=== PATIENT | female | born 2005 | race Hispanic/Latino ===

== ENCOUNTER 2025-06-19 15:25 | Emergency (ER) | payer BC ==
[~2025-06-19] VITALS: Ht 167.6 cm; Wt 72.6 kg
--- NOTE | 2025-06-19 15:32 | ERN ---
ED Note History of Present Illness Stated Complaint: VAGINAL BLEEDING AFTER PLAN B Chief Complaint: Vaginal Problems/Bleeding Time Seen by MD: 15:28 Dictation: PATIENT IS A 20-YEAR-OLD FEMALE COMING IN TODAY WITH COMPLAINTS OF VAGINAL BLEEDING FOR THREE DAYS ONSET AFTER SHE HAD UNPROTECTED SEX AND THEN TOOK A PLAN B PILL. SHE SAID SHE PASSED A BIG CLOT AND THINKS I MIGHT HAVE HAD A MISCARRIAGE. 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 NO PAIN AT THIS TIME Allergies: Coded Allergies: amoxicillin (Unverified Allergy, Unknown, 06/19/25) clavulanic acid (Unverified Allergy, Unknown, 06/19/25) Past Medical History RN Note Reviewed/Agreed w/PFSH: Yes Review of System Dictation CONSTITUTIONAL: NEGATIVE EXCEPT FOR HPI HEAD/FACE: NEGATIVE EXCEPT FOR HPI EENT: NEGATIVE EXCEPT FOR HPI RESPIRATORY: NEGATIVE EXCEPT FOR HPI GASTROINTESTINAL/ABDOMINAL: NEGATIVE EXCEPT FOR HPI GENITOURINARY: NEGATIVE EXCEPT FOR HPI VAGINAL BLEEDING MUSCULOSKELETAL: NEGATIVE EXCEPT FOR HPI INTEGUMENTARY: NEGATIVE EXCEPT FOR HPI NEUROLOGICAL/PSYCH: NEGATIVE EXCEPT FOR HPI HEMATOLOGIC/LYMPHATIC: NEGATIVE EXCEPT FOR HPI ALL SYSTEMS NEGATIVE, EXCEPT NOTED ABOVE. 13 POINT REVIEW OF SYSTEMS ASSESSED AND ALL NEGATIVE EXCEPT FOR ABOVE. Initial Vital Sign VS Vital Signs Date Time Temp Pulse Resp B/P (MAP) Pulse Ox O2 Delivery O2 Flow Rate FiO2 06/19/25 15:28 98.8 97 16 123/66 99 Room Air 0 06/19/25 15:56 21 Physical Exam Dictation VITAL SIGNS REVIEWED GENERAL APPEARANCE: ALERT, ORIENTED X 3, NO ACUTE DISTRESS, WELL DEVELOPED, NOURISHED. HEAD AND FACE: NON-TRAUMATIC. EYES: PERRL, PINK CONJUNCTIVAS, EYELID NO TRAUMA, ANTERIOR CHAMBER WITH ARCUS SENILIS. EARS: PINNAS INTACT AND NO SIGNS OF TRAUMA OR ERYTHEMA EAR CANALS CLEAR AND NO DISCHARGE TM NO ERYTHEMA NOSE: NO DISCHARGE, NO BLEEDING. OROPHARYNX: MOUTH NORMAL, TONGUE PINK, PHARYNX CLEAR,NO ERYTHEMA, TONSILS NO EXUDATES, NO ABSCESSES NOTED, MUCOUS MEMBRANE MOIST NECK: SUPPLE, NON-TENDER, NO THYROMEGALY, NO MASSES, NO JVD, NO BRUITS BREAST:DEFERRED CHEST:NO TENDERNESS, NO CREPITUS, NO PARADOXICAL MOVEMENT, NO RETRACTIONS LUNGS:CLEAR, WELL-VENTILATED, SYMMETRIC, NO RALES, NO WHEEZING, NO RHONCHI, NO STRIDOR, GOOD BREATH SOUNDS BILATERALLY HEART: REGULAR RATE, REGULAR RHYTHM, NO MURMUR, NO GALLOPS VASCULAR: NO PERIPHERAL EDEMA, ABDOMEN: SOFT, POSITIVE BOWEL SOUNDS, NONDISTENDED, NO GUARDING, NONTENDER, NO REBOUND, NO MASSES NO HEPATOMEGALY, NO SPLENOMEGALY, NO MCBRIDE'S SIGN, NO HERNIAS. RECTAL: DEFERRED GENITAL: DEFERRED NEUROLOGICAL: NORMAL SPEECH, MOTOR FUNCTION INTACT, SENSORY FUNCTION INTACT MUSCULOSKELETAL: NECK NONTENDER, FULL RANGE OF MOTION, BACK NONTENDER, FULL RANGE OF MOTION, EXTREMITIES: NONTENDER, FULL RANGE OF MOTION SKIN: COLOR PINK, DRY, NO TURGOR, NO RASH, NO LACERATIONS, NO ABRASIONS, NO CONTUSIONS. LYMPHATIC: DEFERRED Results (Laboratory/Radiology) Laboratory/Radiology Laboratory Tests Test 06/19/25 15:40 Serum Test, Qualitative NEGATIVE (NEGATIVE) Labs Reviewed?: Yes ED Course ED Course Orders Procedure Category Date Status Time Testing, LAB 06/19/25 Complete Serum Hcg 15:30 Vital Signs Date Time Temp Pulse Resp B/P (MAP) Pulse Ox O2 Delivery O2 Flow Rate FiO2 06/19/25 15:56 98.8 90 16 120/61 99 Room Air* 0 21 06/19/25 15:28 98.8 97 16 123/66 99 Room Air 0 1615/patient has a negative hCG by serum. Discharged home with menorrhagia and told to see her primary care doctor for referral to ambulance assistant if any problems Medical Decision Making MDM Medical decision-making based on HPI and serum hCG Serum hCG negative Patient discharged home with a menorrhagia Told see her primary care doctor in the next 1-2 days for referral to ambulance assistant DX & DISP Disposition: Discharge Departure Impression: Primary Impression: Menorrhagia Condition: Stable Additional Instructions: Follow-up with primary care provider in 1 to 2 days. Take medications as directed here in the emergency room. Okay to continue home medications unless otherwise discussed during your visit in the emergency room today. Return to your nearest emergency room if symptoms worsen or if there is no improvement. Call 911 if you need immediate assistance. Take Tylenol or Motrin [id number] as needed and if no contraindications are present. Increase oral hydration. A wound culture or urine culture was ordered here in the emergency room department please follow-up with primary care provider and advise them to get repeat ports from our facility. If you had any Brad wrap/splints that were applied here, please do not remove them until you see your primary care or specialty. Diet and activity as tolerated. Take Tylenol or Motrin [id number] as needed for pain. See your primary care doctor in the next one two days for referral to ambulance assistant services. Time of Disposition: 16:16 I have reviewed the case, and I agree with, Diagnosis and Plan NISHANT PHELPS BLENDER MACHINE OPERATOR Jun 19, 2025 15:32
[2025-06-19 15:56] VITALS: BP 120/61; PULSE 90; RESP 16; TEMP 98.8; O2SAT 99
== END 2025-06-19 16:48 | disposition home or self-care (01) ==
LOC: EDH 15:25
DX: N92.0 Excessive and frequent menstruation with regular cycle (principal); Z88.0 Allergy status to penicillin
CPT/HCPCS: 36415; 84703; 99283